=== PATIENT | male | born 1970 | race Caucasian/White ===

== ENCOUNTER 2020-11-11 12:06 | Inpatient (IN) | payer OTHER, SELFPAY ==
[~2020-11-11] VITALS: Ht 190.5 cm; Wt 85.7 kg
[2020-11-11 12:10] VITALS: BP 110/65
--- NOTE | 2020-11-11 12:25 | NUR ---
Patient wheelchair assisted to ER bed 3.
--- NOTE | 2020-11-11 12:30 | NUR ---
50 Y/O MALE BIB SELF C/O SOB XYESTERDAY. PT TESTED POSITIVE FOR COVID 11/02. PT ALSO C/O FATIGUE AND CORTES 12/13. PT IS NOT VACCINATED. CRACKLES AUSCULATED BILATERAL BASES. SPO2 91% ON RA. PT IN GOWN, ON PYROTECHNIST. PT A/O X4 AND LABORED RESPIRATIONS. DR DELEON MADE AWARE OR STATUS. PMH:GAL NKDA
--- NOTE | 2020-11-11 12:36 | NUR ---
DR DELEON AT BEDSIDE EVALUATING PT
--- NOTE | 2020-11-11 13:35 | NUR ---
PT VERY WARM TO TOUCH, ORAL TEMP 102.[address] DELEON MADE AWARE
[2020-11-11] MEDS ORDERED: ACETAMINOPHEN 325 MG TAB PO ONE (13:45)
[2020-11-11 14:32] LABS: BASOPHILS % (AUTO) 0.1 % (0.0-2.0); HEMATOCRIT 37.3 % (36-52); HEMOGLOBIN 12.7 g/dL (12.0-18.0); LYMPHOCYTES # (AUTO) 0.9 K/uL (2.0-11.5); LYMPHOCYTES % (AUTO) 12.5 % (20.5-51.1); MEAN CORPUSCULAR HEMOGLOBIN 32 pg (27-31); MEAN CORPUSCULAR HGB CONC 34 g/dL (33-37); MEAN CORPUSCULAR VOLUME 92.3 fL (80-94); MONOCYTES # (AUTO) 0.7 K/uL (0.8-1.0); MONOCYTES % (AUTO) 8.8 % (1.7-9.3); NEUTROPHILS # (AUTO) 5.9 K/uL (1.8-7.7); NEUTROPHILS % (AUTO) 78.6 % (42.2-75.2); PLATELET COUNT (AUTO) 218 K/uL (140-450); RED BLOOD CELL COUNT(AUTO) 4.04 MIL/uL (4.20-6.10); RED CELL DISTRIBUTION WIDTH 12.4 % (11.6-13.7); WHITE BLOOD COUNT (AUTO) 7.5 K/uL (4.8-10.8)
[2020-11-11 14:39] LABS: APPEARANCE,URINE CLEAR (CLEAR); BILIRUBIN,URINE NEGATIVE (NEGATIVE); BLOOD, URINE NEGATIVE (NEGATIVE); COLOR,URINE YELLOW (YELLOW); LEUKOCYTE ESTERASE ,URINE NEGATIVE (NEGATIVE); NITRITE, URINE NEGATIVE (NEGATIVE); PH,URINE 7.5 (5.0-9.0); UGLUCOSE NEGATIVE (NEGATIVE)
[2020-11-11 14:51] LABS: ALBUMIN 3.3 g/dL (3.4-5.0); ANION GAP 9.5 (8-16); CARBON DIOXIDE 30.4 mmol/L (21-32); CREATININE 1.1 mg/dL (0.6-1.3); POTASSIUM 3.9 mmol/L (3.5-5.1)
[2020-11-11 14:54] LABS: FIBRINOGEN > 500 mg/dL (200-400); PROTHROMBIN TIME 9.8 secs (10.8-13.4)
[2020-11-11 15:01] LABS: D-DIMER 2840 ng/ml (0-400)
[2020-11-11 15:02] LABS: C-REACTIVE PROTEIN QUANT 6.5 mg/dL (0.0-0.9); LACTATE DEHYDROGENASE 278 U/L (85-227)
--- NOTE | 2020-11-11 15:30 | NUR ---
RECHECKED ORAL TEMP, 99.1 AT THIS TIME. PT RESTING IN BED. PT ON 3L O2, ON BELLY DUMP DRIVER. VSS. WILL CONTINUE TO MONITOR
[2020-11-11] MEDS ORDERED: MAGNESIUM OXIDE 400 MG TAB PO PRN (15:55)
[2020-11-11] MEDS ORDERED: POTASSIUM CHLORIDE 10 MEQ TABER PO PRN (15:55)
[2020-11-11] MEDS ORDERED: ONDANSETRON 4 MG/2 ML VIAL IVP PRN (15:55)
[2020-11-11] MEDS ORDERED: MAG SULF 2000 MG/WATER PREMIX 50 ML IV PRN (15:55)
[2020-11-11] MEDS ORDERED: ACETAMINOPHEN 325 MG TAB PO PRN (15:55)
[2020-11-11] MEDS ORDERED: KCL 20 MEQ/WATER INJ PREMIX 200 ML IV PRN (15:55)
[2020-11-11] MEDS ORDERED: remdesivir COMMUNICATION ORDER 1 EA MISC MC PRN (16:05)
[2020-11-11 16:28] LABS: ALBUMIN 3.3 g/dL (3.4-5.0); BILIRUBIN,DIRECT 0.2 mg/dL (0.0-0.3)
--- NOTE | 2020-11-11 17:46 | NUR ---
PT RESTING IN BED. PT ON 3L 02, NO RESPIRATORY DISTRESS AT THIS TIME. PT ON CONTROL CLERK AUDITING. URINAL AT BEDSIDE
[2020-11-11] MEDS ORDERED: REMDESIVIR. 200 MG in NACL 0.9% 100 ML IV ONE (18:05)
[2020-11-11] MEDS ORDERED: remdesivir CLINICAL MONITORING 1 EA MISC MC PRN (18:05)
[2020-11-11] MEDS ORDERED: cefTRIAXone 1,000 MG VIAL ONE (18:30)
--- NOTE | 2020-11-11 19:30 | NUR ---
REPORT GIVEN TO ADRIANO CHAWLA, TRANSFER OF CARE AT THIS TIME.
[2020-11-11] MEDS ORDERED: AZITHROMYCIN 500 MG INJ VIAL IV ONE (19:43)
[2020-11-11] MEDS: AZITHROMYCIN 500 MG in DEXTROSE 5% 250 ML IV SCH (20:01)
--- NOTE | 2020-11-11 20:11 | NUR ---
CALLED TO BEDSIDE DUE TO PT DESATURATING. PT ON 5L NC. SWITCHED DEVICE TO HIGH FLOW NASAL CANNULA 6L. SPO2 92%. RN NOTIFIED. WILL CONTINUE TO MONITOR PT.
--- NOTE | 2020-11-11 20:30 | NUR ---
Patient will be admitted to care of [facility]. Admited to telemetry. Will go to [id number]. Belongings list completed. Report to swapna woodard.
--- NOTE | 2020-11-11 20:51 | NUR ---
ADMISSION NOTE FOR A 50 YEAR OLD MALE PATIENT OF DOCTOR DEJESUS WITH COVID HYPOXIA INTO THE 80'S ON ROOM AIR. HISTORY INCLUDES OBESITY AND HYPERTENSION. PATIENT RESIDES AT HOME WITH FAMILY WHERE HE PLANS TO DISCHARGE TO WHEN STABLE. FIORDALIZA CABAN RN Addendum: 11/11/20 at 2101 by Agency CAMMY CHAWLA HYPERLIPIDMIA HISTORY NOT HYPERTENSION Addendum: 11/11/20 at 210 by Agency CAMMY CHAWLA HYPERLIPIDEMIA Addendum: 11/12/20 at 0724 by Agency 09 RN RN HYPERLIPIDEMIA, NOT OBESITY
[2020-11-11 21:18] VITALS: BP 138/77
[2020-11-11 22:20] VITALS: BP 108/63
[2020-11-12] VITALS (7 sets, daily range): BP systolic 111–129; BP diastolic 66–84
[2020-11-12 07:21] LABS: BASOPHILS % (AUTO) 0.1 % (0.0-2.0); EOSINOPHILS % (AUTO) 0.1 % (0.0-4.0); HEMATOCRIT 36.4 % (36-52); HEMOGLOBIN 12.5 g/dL (12.0-18.0); LYMPHOCYTES # (AUTO) 1.1 K/uL (2.0-11.5); LYMPHOCYTES % (AUTO) 13.9 % (20.5-51.1); MEAN CORPUSCULAR HEMOGLOBIN 31 pg (27-31); MEAN CORPUSCULAR HGB CONC 34 g/dL (33-37); MEAN CORPUSCULAR VOLUME 91.5 fL (80-94); MONOCYTES # (AUTO) 0.7 K/uL (0.8-1.0); MONOCYTES % (AUTO) 8.4 % (1.7-9.3); NEUTROPHILS # (AUTO) 6.3 K/uL (1.8-7.7); NEUTROPHILS % (AUTO) 77.5 % (42.2-75.2); PLATELET COUNT (AUTO) 233 K/uL (140-450); RED BLOOD CELL COUNT(AUTO) 3.98 MIL/uL (4.20-6.10); RED CELL DISTRIBUTION WIDTH 12.1 % (11.6-13.7); WHITE BLOOD COUNT (AUTO) 8.1 K/uL (4.8-10.8)
--- NOTE | 2020-11-12 07:25 | NUR ---
recieved report from occupational therapy specialist nurse, pt laying in bed, no sign of distress noted, no complainds, pt on nasal canula 2l sat 96%, pt has iv in his l AC 20G , pt on registered nurse cardiac showing sinus rhythm. pt is COVID positive. all safety measures on place, calls light within reach.
--- NOTE | 2020-11-12 07:34 | NUR ---
HANDOFF WITH CAMMY KAHN. FIODRALIZA CABAN RN
[2020-11-12 07:47] LABS: CARBON DIOXIDE 31.3 mmol/L (21-32); CREATININE 0.9 mg/dL (0.6-1.3); POTASSIUM 4.3 mmol/L (3.5-5.1)
[2020-11-12 08:03] LABS: PROTHROMBIN TIME 10.2 secs (10.8-13.4)
[2020-11-12 08:13] LABS: CHOL/HDL RATIO 4.7 (1-4.5); MAGNESIUM 2.1 mg/dL (1.8-2.4)
[2020-11-12 08:16] LABS: BILIRUBIN,DIRECT 0.3 mg/dL (0.0-0.3)
--- NOTE | 2020-11-12 09:15 | NUR ---
PT SITTING ON BED, EATING BREAKFAST, NO SIGN OF DISTRESS NOTED, PT COMPLAIN ABOUT FEELING TIRED BECAUSE HE DID NOT RECEIVE FOOD YESTERDAY. MORNING MEDICATINS GOT ADMINISTRATED, TOLERATED WELL. ALL SAFETY MEASURE ON PLACE, CALLS LIGHT WITHIN REACH
--- NOTE | 2020-11-12 09:19 | NUR ---
PATIENT HAS BEEN SCREENED AND CATEGORIZED MODERATE NUTRITION RISK. PATIENT WILL BE SEEN WITHIN 3-5 DAYS OF ADMISSION. 11/14/20 11/16/[address]
[2020-11-12] MEDS: DEXAMETHASONE 4 MG/ML VIAL IVP SCH (09:20)
[2020-11-12] MEDS: DOCUSATE SODIUM 100 MG GELCAP PO SCH (09:20)
--- NOTE | 2020-11-12 11:10 | NUR ---
PT SITTING ON BED, COMPLAINS ABOUT COUGH AND DIFFICULTY BREATHING, SAT %96 BLOOD PRESSURE 112/72 HEART RATE 73, PT IN NASAL CANULA 2L.
--- NOTE | 2020-11-12 13:25 | NUR ---
PT LAYING ON BED NO COMPLAINS AT THIS TIME, NO SIGN OF DISTRESS NOTED, SAFETY MEASURES ON PLACE, CALLS LIGHT WITHIN REACH.
--- NOTE | 2020-11-12 15:30 | NUR ---
PT LAYING ON BED NO COMPLAINS AT THIS TIME, NO SIGN OF DISTRESS NOTED, PT GOT ASSISTED TO USE THE RESTROOM. SAFETY MEASURES ON PLACE, CALLS LIGHT WITHIN REACH.
--- NOTE | 2020-11-12 17:35 | NUR ---
PT LAYING ON BED COMPLAINS THAT FEELING TIRED, PT GOT EDUCATED ABOUT DIAGNOSIS, AND MANAGING SYMPTOMS, NO SIGN OF DISTRESS NOTED, SAFETY MEASURES ON PLACE, CALLS LIGHT WITHIN REACH.
[2020-11-12] MEDS: AZITHROMYCIN 500 MG in DEXTROSE 5% 250 ML IV SCH (18:00)
[2020-11-12] MEDS: REMDESIVIR. 100 MG in NACL 0.9% 100 ML IV SCH (19:00)
--- NOTE | 2020-11-12 19:05 | NUR ---
REPORT GIVEN TO CONCRETE MIXER LOADER TRUCK MOUNTED NURSE.
[2020-11-13] VITALS: BP 117/77
[2020-11-13 04:00] VITALS: BP 124/82
--- NOTE | 2020-11-13 07:15 | NUR ---
RECEIVED CHANGE OF SHIFT REPORT FROM NIGHT NURSE AT BEDSIDE FOR CONTINUITY OF CARE. DISCUSSED AND WILL CONTINUE POC. PT CONDITION IS STABLE. PT IS AWAKE, AA&OX4. PT IS ON 5L NC WITH NORMAL, UNLABORED BREATHING. PT USES URINAL TO VOID. PT HAS PREVIOUS FRACTURE IN L-LOWER LEG WITH CRUTCHES AT BEDSIDE. SKIN IS WARM, DRY, AND INTACT. PT HAS PATENT L-FOREARM 18G. WILL CONTINUE TO MONITOR.
--- NOTE | 2020-11-13 07:17 | NUR ---
HANDOFF WITH CAMMY LUQUE. FIORDALIZA CABAN RN
[2020-11-13 07:46] LABS: EOSINOPHILS % (AUTO) 0.4 % (0.0-4.0); HEMOGLOBIN 12.5 g/dL (12.0-18.0); LYMPHOCYTES # (AUTO) 1.2 K/uL (2.0-11.5); LYMPHOCYTES % (AUTO) 13.2 % (20.5-51.1); MEAN CORPUSCULAR HEMOGLOBIN 31 pg (27-31); MEAN CORPUSCULAR HGB CONC 34 g/dL (33-37); MEAN CORPUSCULAR VOLUME 92.4 fL (80-94); MONOCYTES # (AUTO) 0.9 K/uL (0.8-1.0); MONOCYTES % (AUTO) 10.1 % (1.7-9.3); NEUTROPHILS % (AUTO) 76.3 % (42.2-75.2); PLATELET COUNT (AUTO) 298 K/uL (140-450); RED CELL DISTRIBUTION WIDTH 12.2 % (11.6-13.7); WHITE BLOOD COUNT (AUTO) 9.2 K/uL (4.8-10.8)
[2020-11-13 07:54] LABS: ALBUMIN 3.1 g/dL (3.4-5.0); BILIRUBIN,DIRECT 0.2 mg/dL (0.0-0.3); TOTAL BILIRUBIN 1.1 mg/dL (0.0-1.0)
[2020-11-13 08:00] VITALS: BP 115/72
[2020-11-13 08:02] LABS: ANION GAP 10.6 (8-16); CREATININE 0.9 mg/dL (0.6-1.3); MAGNESIUM 2.3 mg/dL (1.8-2.4); POTASSIUM 4.6 mmol/L (3.5-5.1); TOTAL BILIRUBIN 1.1 mg/dL (0.0-1.0)
[2020-11-13 08:45] LABS: PROTHROMBIN TIME 10.5 secs (10.8-13.4)
--- NOTE | 2020-11-13 09:20 | NUR ---
PT IS AWAKE AND WATCHING TV. PT IS AA&OX4 ON 5 L NC WITH GRUNTING AND MINOR LABORED BREATHING. PT DENIES ANY PAIN AT THIS TIME. WILL CONTINUE TO MONITOR.
[2020-11-13] MEDS: DOCUSATE SODIUM 100 MG GELCAP PO SCH (09:48)
[2020-11-13] MEDS: DEXAMETHASONE 4 MG/ML VIAL IVP SCH (09:49)
--- NOTE | 2020-11-13 11:30 | NUR ---
PT CONDITION IS STABLE. PT NEEDED ASSISTANCE USING THE BATHROOM, WINDOW SHADE ESTIMATOR AT BEDSIDE TO ASSIST. 1 BM WAS PRODUCED. PT DENIES PAIN AT THIS TIME AND BREATHING IS BETTER AFTER BM.
[2020-11-13 12:00] VITALS: BP 119/72
--- NOTE | 2020-11-13 13:30 | NUR ---
PT CONDITION IS STABLE AA&OX4. NC AT 5 L BREATHING IN UNLABORED WITH SLIGHT SOB. WILL CONTINUE TO MONITOR.
--- NOTE | 2020-11-13 14:51 | NUR ---
DC PLANNING: ORDERS RECEIVED TO EVALUATE FOR HOME O2, TC TO RT THIS MORNING ASKING FOR O2 SAT ON RA, CALLED AGAIN DOCUMENTATION IS NOT THERE YET. SPOKE WITH RODO, STATES SHE WILL EVALUATE PATIENT. ALEXEI WILL FOLLOW FOR NEEDS. Addendum: 11/16/20 at 1243 by Donna Hinojosa CM DC PLANNING: ALEXEI SPOKE WITH THE PATIENT AT BEDSIDE. HE LIVES IN A TWO STORY HOME WITH HIS AND 2 CHILDREN. HE IS CURRENTLY NOT WORKING BECAUSE OF A FRACTURED LEFT LEG. EXPLAINED THAT HOME O2 IS BEING ARRANGED AND CONFIRMED THE ADDRESS AND CONTACT PHONE NUMBER FOR HIS [facility] PER THE FACESHEET. ORDER AND INFORMATION FAXED TO [facility]. ALEXEI ALSO SPOKE WITH THE PATIENTS [facility]EL AND ENDORSED THAT [facility] WILL CALL TO SCHEDULE DELIVERY OF O2 EQUIPMENT AND THAT SHE MIGHT NEED TO BRING THE PORTABLE O2 TO THE HOSPITAL WHEN HE DC'S. [facility] WILL TRANSPORT HIM HOME WHEN HE'S DC'D, STATES SHE IS VACCINATED AND THAT SHE HAS ALREADY HAD COVID. ALEXEI WILL FOLLOW FOR NEEDS.
--- NOTE | 2020-11-13 15:30 | NUR ---
PT AWAKE AND WATCHING TV. PT DENIES PAIN OR DISCOMFORT AT THIS TIME. WILL CONTINUE TO MONITOR.
[2020-11-13 16:00] VITALS: BP 118/69
--- NOTE | 2020-11-13 17:25 | NUR ---
PT CALL LIGHT ANSWERED. NEEDED WATER. GOT WATER AND DENIED PAIN OR DISCOMFORT. NO CHANGE IN BREATHING. WILL CONTINUE TO MONITOR.
[2020-11-13] MEDS: AZITHROMYCIN 500 MG in DEXTROSE 5% 250 ML IV SCH (18:00)
[2020-11-13] MEDS: REMDESIVIR. 100 MG in NACL 0.9% 100 ML IV SCH (18:05)
--- NOTE | 2020-11-13 18:05 | NUR ---
UNABLE TO ADMINISTER SCHEDULED REMDESIVIR IV ABX. IV PUMP STOPPED WORKING FOR 1700 ABX DELAYING SCHEDULED IV ABX. WILL NOTIFY NIGHT NURSE.
--- NOTE | 2020-11-13 19:25 | NUR ---
GAVE CHANGE OF SHIFT REPORT TO NIGHT NURSE FOR CONTINUITY OF CARE. POC DISCUSSED. PT CONDITION IS STABLE. Addendum: 11/13/20 at 210 by Whitney Chacon RN RN NOTIFIED NIGHT NURSE BEHIND SCHEDULE ON IV ABX.
[2020-11-14 01:02] VITALS: BP 115/71
[2020-11-14] MEDS: HYDROcodone/APAP 5/325 MG 1 TAB TAB PO PRN ×3 (03:25→21:46)
[2020-11-14 04:31] VITALS: BP 122/76
--- NOTE | 2020-11-14 04:53 | NUR ---
THE PATEINT IS ALERT AND ORIENTED , VITALS ARE STABLE, HAD PAIN 7 ON SCALE 0-10 , NORCO WAS ADMINISTERED
--- NOTE | 2020-11-14 07:21 | NUR ---
RECEIVED REPORT FROM MAINTENANCE ENGINEER OIL FIELD NURSE FOR CONTINUITY OF CARE, POC DISCUSSED. PT IS ASLEEP IN BED WITH CHEST RISING AND FALLING EVEN AND UNLABORED, ON 5L NC. PT IS SR ON TELE MONITOR SHOWING 90 HR. PT HAS A LEFT FA 18G SALINE LOCK. PT IS FALLING COVID PRECAUTIONS. ALL SAFETY MEASURES IN PLACE, CALL LIGHT WITHIN REACH. WILL CONTINUE TO MONITOR.
[2020-11-14 07:31] LABS: BASOPHILS % (AUTO) 0.2 % (0.0-2.0); EOSINOPHILS % (AUTO) 0.4 % (0.0-4.0); HEMATOCRIT 33.8 % (36-52); HEMOGLOBIN 11.7 g/dL (12.0-18.0); LYMPHOCYTES # (AUTO) 1.1 K/uL (2.0-11.5); LYMPHOCYTES % (AUTO) 9.1 % (20.5-51.1); MEAN CORPUSCULAR HEMOGLOBIN 31 pg (27-31); MEAN CORPUSCULAR HGB CONC 35 g/dL (33-37); MEAN CORPUSCULAR VOLUME 90.6 fL (80-94); MONOCYTES % (AUTO) 8.3 % (1.7-9.3); NEUTROPHILS # (AUTO) 9.7 K/uL (1.8-7.7); PLATELET COUNT (AUTO) 328 K/uL (140-450); RED BLOOD CELL COUNT(AUTO) 3.73 MIL/uL (4.20-6.10); RED CELL DISTRIBUTION WIDTH 12.2 % (11.6-13.7); WHITE BLOOD COUNT (AUTO) 11.8 K/uL (4.8-10.8)
[2020-11-14 07:50] LABS: ALBUMIN 2.8 g/dL (3.4-5.0); BILIRUBIN,DIRECT 0.3 mg/dL (0.0-0.3)
[2020-11-14 08:00] VITALS: BP 113/80
[2020-11-14 08:23] LABS: PROTHROMBIN TIME 10.3 secs (10.8-13.4)
[2020-11-14 08:41] LABS: ALBUMIN 2.8 g/dL (3.4-5.0); CARBON DIOXIDE 29.4 mmol/L (21-32); CREATININE 0.8 mg/dL (0.6-1.3); MAGNESIUM 2.1 mg/dL (1.8-2.4); POTASSIUM 4.4 mmol/L (3.5-5.1)
[2020-11-14] MEDS: DOCUSATE SODIUM 100 MG GELCAP PO SCH (09:24)
[2020-11-14] MEDS: DEXAMETHASONE 4 MG/ML VIAL IVP SCH (09:24)
--- NOTE | 2020-11-14 09:28 | NUR ---
RENU MEDICATION ADMINISTERED PER MD ORDER, PT TOLERATED ADMINISTRATION. PT EDUCATION PROVIDED AND PT TOLERATED. PT IV IS PATENT AND INTACT. INTERMITTENT COUGH NOTED, NO PRODUCTION. PT ATE 75% BREAKFAST, URINAL EMPTIED FROM 320ML IMANI COLOR URINE. PT REPORTS ALL OTHER NEEDS ARE MET AT THIS TIME. ALL SAFETY MEASURES IN PLACE, CALL LIGHT WITHIN REACH. EDUCATED SKI LIFT OPERATOR LIGHT AND PT VERBALIZED UNDERSTANDING. ALL SAFETY MEASURES IN PLACE, CALL LIGHT WITHIN REACH. WILL CONTINUE TO MONITOR.
[2020-11-14] MEDS: REMDESIVIR. 100 MG in NACL 0.9% 100 ML IV SCH (10:55)
--- NOTE | 2020-11-14 10:57 | NUR ---
MEDICATED PER MD ORDER FOR PAIN, RENU MEDICATION ADMINISTERED PER MD ORDER. PT EDUCATION PROVIDED. PT VERBALIZED UNDERSTANDING ALL SAFETY MEASURES IN PLACE, CALL LIGHT WITHIN REACH. WILL CONTINUE TO MONITOR.
--- NOTE | 2020-11-14 11:57 | NUR ---
PT REPORTS TOLERABLE CHEST PAIN. ALL SAFETY MEASURES IN PLACE, CALL LIGHT WITHIN REACH. WILL CONTINUE TO MONITOR.
[2020-11-14 12:00] VITALS: BP 106/67
--- NOTE | 2020-11-14 13:51 | NUR ---
PT BEDSIDE TABLE CLEANED FOR PT, 200 IMANI URINE IN URINAL. PT REPORTS ALL NEEDS MET AT THIS TIME. CALL LIGHT WITHIN REACH. WILL CONTINUE TO MONITOR.
--- NOTE | 2020-11-14 14:58 | NUR ---
ROUNDED ON PT, PT IS RESTING IN BED WITH NO S/S OF ACUTE DISTRESS. CHEST RISING AND FALLING EVEN AND UNLABORED. PT IS ON 5L NC. ALL SAFETY MEASURES IN PLACE, CALL LIGHT WITHIN REACH. WILL CONTINUE TO MONITOR.
[2020-11-14 16:00] VITALS: BP 110/72
--- NOTE | 2020-11-14 16:50 | NUR ---
RENU MEDICATION ADMINISTERED PER MD ORDER, PT TOLERATED ADMINISTRATION. ALL SAFETY MEASURES IN PLACE, CALL LIGHT WITHIN REACH. WILL CONTINUE TO MONITOR.
--- NOTE | 2020-11-14 18:21 | NUR ---
RENU MEDICATION ADMINISTERED PER MD ORDER. PT REPORTS ALL NEEDS MET AT THIS TIME. ALL SAFETY MEASURES IN PLACE. CALL LIGHT WITHIN REACH. WILL CONTINUE TO MONITOR.
[2020-11-14] MEDS: AZITHROMYCIN 500 MG in DEXTROSE 5% 250 ML IV SCH (18:37)
--- NOTE | 2020-11-14 19:00 | NUR ---
PT IS STABLE. PT ENDORSED TO DEAL ARCHITECT NURSE FOR CONTINUITY OF CARE. POC DISCUSSED.
--- NOTE | 2020-11-14 19:47 | NUR ---
RECEIVED PATIENT FROM AM NURSE FOR CONTINUITY OF CARE. PATIENT IS A/A/O X4. ON TELE MONITOR. RESPIRATORY EVEN AND UNLABORED, ON 5L NC, O2 SAT 92%, PATIENT DENIES ANY SOB OR TROUBLE BREATHING. DRY COUGH NOTED INTERMITTENT. SKIN WARM, DRY, NON DIAPHORETIC. IV ON LEFT FA 18G, INTACT AND PATENT, TKO. ORTHO BOOT NOTED ON LLE. PATIENT DENIES ANY PAIN, WEAKNESS, NUMBNESS OR TINGLING SENSATION. CRUTCHES NOTED AT BEDSIDE. PATIENT ABLE TO MAKE NEEDS KNOW. PLAN OF CARE DISCUSSED. PATIENT VERBALIZED UNDERSTANDING. CALL LIGHT WITHIN REACH. PRECAUTION IN PLACE. WILL CONTINUE TO MONITOR.
[2020-11-14 20:00] VITALS: BP 100/70
--- NOTE | 2020-11-14 21:46 | NUR ---
PATIENT COMPLAINS OF PAIN ON HIS CHEST WALL 6/10 DUE TO COUGH. PATIENT ON TELE MONITOR, SR 73. PRN MEDICATION GIVEN WITH EDUCATION. PATIENT TOLERATED WELL. NO SIGN OF DISTRESS NOTED. PRECAUTION IN PLACE. CALL LIGHT WITHIN REACH. WILL CONTINUE TO MONITOR.
--- NOTE | 2020-11-14 22:46 | NUR ---
PATIENT IS SLEEPING. CHEST RISE AND FALL NOTED. NO SIGN OF DISTRESS. PRECAUTION IN PLACE. CALL LIGHT WITHIN REACH. WILL CONTINUE TO MONITOR.
[2020-11-15] VITALS: BP 101/57
--- NOTE | 2020-11-15 | NUR ---
VITAL SIGNS WITHIN NORMAL LIMIT. PATIENT IS STABLE. NO SIGN OF DISTRESS NOTED. PRECAUTION IN PLACE. CALL LIGHT WITHIN REACH. WILL CONTINUE TO MONITOR.
--- NOTE | 2020-11-15 02:00 | NUR ---
ROUND CHECK. PATIENT IS SLEEPING, CHEST RISE AND FALL NOTED, AROUSABLE TO VOICE. NO SIGN OF DISTRESS. PRECAUTION IN PLACE. CALL LIGHT WITHIN REACH. WILL CONTINUE TO MONITOR.
[2020-11-15 04:00] VITALS: BP 104/69
--- NOTE | 2020-11-15 04:00 | NUR ---
VITAL SIGN WITHIN NORMAL LIMIT. PATIENT IS RESTING IN BED, DENIES ANY SOB OR TROUBLE BREATHING. PRECAUTION IN PLACE. CALL LIGHT WITHIN REACH. WILL CONTINUE TO MONITOR.
--- NOTE | 2020-11-15 06:00 | NUR ---
PATIENT IS RESTING IN BED, NO SIGN OF DISTRESS, WARM BLANKET AND EXTRA PILLOW PROVIDED. PATIENT SATISFIED. PRECAUTION IN PLACE. CALL LIGHT WITHIN REACH. WILL CONTINUE TO MONITOR.
[2020-11-15 07:10] LABS: BASOPHILS % (AUTO) 0.1 % (0.0-2.0); EOSINOPHILS # (AUTO) 0.1 K/uL (0-0.4); HEMOGLOBIN 11.8 g/dL (12.0-18.0); LYMPHOCYTES # (AUTO) 1.1 K/uL (2.0-11.5); LYMPHOCYTES % (AUTO) 10.2 % (20.5-51.1); MEAN CORPUSCULAR HEMOGLOBIN 31 pg (27-31); MEAN CORPUSCULAR HGB CONC 34 g/dL (33-37); MEAN CORPUSCULAR VOLUME 91.5 fL (80-94); MONOCYTES % (AUTO) 8.8 % (1.7-9.3); NEUTROPHILS # (AUTO) 8.9 K/uL (1.8-7.7); NEUTROPHILS % (AUTO) 79.9 % (42.2-75.2); PLATELET COUNT (AUTO) 388 K/uL (140-450); PROTHROMBIN TIME 10.3 secs (10.8-13.4); RED BLOOD CELL COUNT(AUTO) 3.82 MIL/uL (4.20-6.10); RED CELL DISTRIBUTION WIDTH 12.2 % (11.6-13.7); WHITE BLOOD COUNT (AUTO) 11.2 K/uL (4.8-10.8)
--- NOTE | 2020-11-15 07:10 | NUR ---
ENDORSED PATIENT TO AM NURSE FOR CONTINUITY OF CARE. PATIENT IS STABLE.
[2020-11-15 07:20] LABS: ALBUMIN 2.8 g/dL (3.4-5.0); ANION GAP 10.9 (8-16); CARBON DIOXIDE 29.2 mmol/L (21-32); CREATININE 0.8 mg/dL (0.6-1.3); POTASSIUM 4.1 mmol/L (3.5-5.1); TOTAL BILIRUBIN 0.8 mg/dL (0.0-1.0)
--- NOTE | 2020-11-15 07:22 | NUR ---
RECEIVED REPORT FROM OPEN HEARTH WORKER NURSE FOR CONTINUITY OF CARE, POC DISCUSSED. PT IS ASLEEP IN BED WITH CHEST RISING AND FALLING EVEN AND UNLABORED. PT SKIN INTACT, WITH A LEFT BOOT FOR FRACTURE. PT HAS A LEFT FOREARM 18G SALINE LOCK. PT IS ON TELE MONITOR. ALL COVID MEASURES IN PLACE, ALL SAFETY MEASURES IN PLACE. CALL LIGHT WITHIN REACH. WILL CONTINUE TO MONITOR.
[2020-11-15 07:23] LABS: ALBUMIN 2.8 g/dL (3.4-5.0); BILIRUBIN,DIRECT 0.2 mg/dL (0.0-0.3); TOTAL BILIRUBIN 0.8 mg/dL (0.0-1.0)
[2020-11-15 08:00] VITALS: BP 114/70
[2020-11-15 08:00] LABS: D-DIMER > 5000 ng/ml (0-400)
[2020-11-15] MEDS: DOCUSATE SODIUM 100 MG GELCAP PO SCH (09:36)
[2020-11-15] MEDS: DEXAMETHASONE 4 MG/ML VIAL IVP SCH (09:36)
--- NOTE | 2020-11-15 09:44 | NUR ---
RENU MEDICATION ADMINISTERED PER MD ORDER, PT TOLERATED ADMINISTRATION. PT EDUCATION PROVIDED. PT URINAL EMPTIED 250 IMANI URINE. PT CHEST RISING AND FALLING EVEN AND UNLABORED ON 5L NC. ALL SAFETY MEASURES IN PLACE, CALL LIGHT WITHIN REACH. WILL CONTINUE TO MONITOR.
[2020-11-15] MEDS: REMDESIVIR. 100 MG in NACL 0.9% 100 ML IV SCH (10:42)
--- NOTE | 2020-11-15 10:51 | NUR ---
RENU MEDICATION ADMINISTERED PER MD ORDER, PT TOLERATED ADMINISTRATION. PT EDUCATION PROVIDED, PT VERBALIZED UNDERSTANDING. ALL SAFETY MEASURES IN PLACE, CALL LIGHT WITHIN REACH. WILL CONTINUE TO MONITOR.
[2020-11-15] MEDS: HYDROcodone/APAP 5/325 MG 1 TAB TAB PO PRN ×2 (11:49→22:26)
--- NOTE | 2020-11-15 11:58 | NUR ---
PRN PAIN MEDICATION ADMINISTERED PER MD ORDER, PT TOLERATED ADMINISTRATION. PT EDUCATION PROVIDED, PT VERBALIZED UNDERSTANDING. EDUCATED PT ON IMPORTANCE OF WEARING A MASK TO PREVENT COVID FROM SPREADING, PT VERBALIZED UNDERSTANDING. ALL SAFETY MEASURES IN PLACE. CALL LIGHT WITHIN REACH. WILL CONTINUE TO MONITOR.
[2020-11-15 12:00] VITALS: BP 117/76
--- NOTE | 2020-11-15 13:06 | NUR ---
PT IS EATING LUNCH IN BED WITH CHEST RISING AND FALLING EVEN AND UNLABORED. ALL SAFETY MEASURES IN PLACE. CALL LIGHT WITHIN REACH. WILL CONTINUE TO MONITOR.
--- NOTE | 2020-11-15 15:05 | NUR ---
PT IS STABLE, RESTING IN BED WITH NO ACUTE S/S. PROVIDED PT WITH HIS PHONE PER REQUEST. PT VERBALIZED ALL OTHER NEEDS MET AT THIS TIME. ALL SAFETY MEASURES IN PLACE. CALL LIGHT WITHIN REACH. WILL CONTINUE TO MONITOR.
--- NOTE | 2020-11-15 16:24 | NUR ---
PT IS RESTING IN BED WITH NO ACUTE S/S. ALL SAFETY MEASURES IN PLACE, CALL LIGHT WITHIN REACH. WILL CONTINUE TO MONITOR.
--- NOTE | 2020-11-15 17:05 | NUR ---
NURSE REPORT REPORT OBTAINED FROM OTHER DAY SHIFT NURSE AND THIS NURSE ASSUME CARE OF PATIENT UNTIL END OF SHIFT.
--- NOTE | 2020-11-15 17:05 | NUR ---
PT BEEN ENDORSED TO [facility] FOR CONTINUITY OF CARE, POC DISCUSSED. PT STABLE.
[2020-11-15] MEDS: AZITHROMYCIN 500 MG in DEXTROSE 5% 250 ML IV SCH (17:52)
--- NOTE | 2020-11-15 19:45 | NUR ---
NURSE REPORT REPORT GIVEN TO NIGHT NURSE HOWARD TO ASSUME CARE OF PATIENT. GIVEN SBAR AND ALL QUESTIONS ANSWERED.
[2020-11-15 20:00] VITALS: BP 120/81
--- NOTE | 2020-11-15 23:15 | NUR ---
the patient vitals are stable , he is on nc with unlabored respiration. he has pain 6 on scale 0-10 and [place] was administered comfort and safety measures were provided
[2020-11-16 00:56] VITALS: BP 114/78
[2020-11-16 06:06] VITALS: BP 125/85
--- NOTE | 2020-11-16 07:25 | NUR ---
RECEIVED REPORT FROM ANIMATION CAMERA OPERATOR RN FOR CONTINUITY OF CARE. PATIENT IS RESTING IN BED. NO S/S OF DISTRESS. RESPIRATIONS ARE EVEN AND UNLABORED. ALL SAFETY PRECAUTIONS IN PLACE.
[2020-11-16 07:42] LABS: PROTHROMBIN TIME 10.6 secs (10.8-13.4)
[2020-11-16 07:47] LABS: EOSINOPHILS # (AUTO) 0.1 K/uL (0-0.4); EOSINOPHILS % (AUTO) 1.2 % (0.0-4.0); HEMATOCRIT 35.1 % (36-52); HEMOGLOBIN 11.9 g/dL (12.0-18.0); LYMPHOCYTES # (AUTO) 1.4 K/uL (2.0-11.5); LYMPHOCYTES % (AUTO) 11.7 % (20.5-51.1); MEAN CORPUSCULAR HEMOGLOBIN 31 pg (27-31); MEAN CORPUSCULAR HGB CONC 34 g/dL (33-37); MEAN CORPUSCULAR VOLUME 91.7 fL (80-94); MONOCYTES # (AUTO) 1.1 K/uL (0.8-1.0); MONOCYTES % (AUTO) 9.8 % (1.7-9.3); NEUTROPHILS # (AUTO) 8.9 K/uL (1.8-7.7); NEUTROPHILS % (AUTO) 77.3 % (42.2-75.2); PLATELET COUNT (AUTO) 347 K/uL (140-450); RED BLOOD CELL COUNT(AUTO) 3.83 MIL/uL (4.20-6.10); RED CELL DISTRIBUTION WIDTH 12.2 % (11.6-13.7); WHITE BLOOD COUNT (AUTO) 11.5 K/uL (4.8-10.8)
[2020-11-16 08:05] LABS: D-DIMER > 5000 ng/ml (0-400)
[2020-11-16] MEDS: DOCUSATE SODIUM 100 MG GELCAP PO SCH (08:53)
[2020-11-16] MEDS: DEXAMETHASONE 4 MG/ML VIAL IVP SCH (08:53)
--- NOTE | 2020-11-16 08:55 | NUR ---
ADMINISTERED SCHEDULED MEDICATIONS. PATIENT VERBALIZED UNDERSTANDING. ALL SAFETY PRECAUTIONS IN PLACE. WILL CONTINUE TO MONITOR.
[2020-11-16 11:04] LABS: ALBUMIN 2.8 g/dL (3.4-5.0); TOTAL BILIRUBIN 0.7 mg/dL (0.0-1.0)
[2020-11-16 11:19] LABS: BILIRUBIN,DIRECT 0.2 mg/dL (0.0-0.3)
[2020-11-16 11:25] LABS: ALBUMIN 2.8 g/dL (3.4-5.0); ANION GAP 10.7 (8-16); CARBON DIOXIDE 29.3 mmol/L (21-32); CREATININE 0.8 mg/dL (0.6-1.3); MAGNESIUM 2.2 mg/dL (1.8-2.4); TOTAL BILIRUBIN 0.7 mg/dL (0.0-1.0)
--- NOTE | 2020-11-16 11:45 | NUR ---
PATIENT RESTING IN BED. NO S/S OF DISTRESS. ALL SAFETY PRECAUTIONS IN PLACE. ALSO SPOKE WITH PATIENT'S OVER THE PHONE TO UPDATE HER ON POC.
[2020-11-16 12:00] VITALS: BP 107/61
[2020-11-16] MEDS: REMDESIVIR. 100 MG in NACL 0.9% 100 ML IV SCH (14:14)
--- NOTE | 2020-11-16 14:15 | NUR ---
CHECKED ON PATIENT. PATIENT IS AWAKE AND IN BED. HE DOES NOT COMPLAIN OF ANY PAIN. IV SITE IS CLEAN, DRY, INTACT. NO S/S OF DISTRESS. ALL SAFETY PRECAUTIONS IN PLACE.
[2020-11-16 16:00] VITALS: BP 97/60
--- NOTE | 2020-11-16 16:58 | NUR ---
RECEIVED HOME O2 SUPPORT FROM [facility]. DOCTOR IS AWARE.
--- NOTE | 2020-11-16 17:38 | NUR ---
11/16/2020 RD INITIAL ASSESSMENT COMPLETED PLEASE REFER TO NUTRITION ASSESSMENT UNDER CARE ACTIVITY FOR ESTIMATED NUTRITIONAL NEEDS. CONTINUE CURRENT DIET TOLERATED RD TO FOLLOW-UP IN 3-5 DAYS PATIENT IS MODERATE RISK. DIANA YOUSSEF RD
--- NOTE | 2020-11-16 19:34 | NUR ---
ENDORSED PATIENT TO PAINT BOOTH OPERATOR RN FOR CONTINUITY OF CARE. PATIENT IS STABLE.
--- NOTE | 2020-11-16 19:35 | NUR ---
RECEIVED ENDORSEMENT FROM AM NURSE. PATIENT IS IN BED RESTING, AAOX4 WITH O2 VIA NC AT 5 LPM. NO SOB NOTED. SKIN WARM AND DRY TO TOUCH. ALL SAFETY PRECAUTIONS ARE IN PLACE. NO COMPLAINTS OF PAIN. CALL LIGHT WITHIN REACH. WILL CONTINUE TO MONITOR.
[2020-11-16 20:00] VITALS: BP 99/64
--- NOTE | 2020-11-16 21:30 | NUR ---
PATIENT COMPLAINED OF THROAT DRYNESS, ENCOURAGED TO DRINK WATER, WATER SERVED.
--- NOTE | 2020-11-16 22:15 | NUR ---
PATIENT IS AWAKE, NO S/S OF RESPIRATORY DISTRESS. CALL LIGHT WITHIN REACH. NEEDS ATTENDED TO. AFEBRILE.
[2020-11-17] VITALS: BP 96/60
[2020-11-17 04:00] VITALS: BP 103/57
--- NOTE | 2020-11-17 04:30 | NUR ---
PATIENT COMPLAINED IF INABILITY TO SLEEP AT 0430. EXPLAINED TO PT THAT IT'S TOO LATE TO GIVE SLEEPING PILL AT THIS TIME. PT WANTS TO TALK TO AUTO BODY CUSTOMIZER. AUTO BODY CUSTOMIZER MADE AWARE.
--- NOTE | 2020-11-17 07:25 | NUR ---
ENDORSED TO AM NURSE FOR CONTINUITY OF CARE. PT IS STABLE.
--- NOTE | 2020-11-17 07:27 | NUR ---
RECEIVED REPORT FROM NAIL SPECIALIST RN FOR CONTINUITY OF CARE. PATIENT IS RESTING IN BED. NO S/S OF DISTRESS. ALL SAFETY PRECAUTIONS IN PLACE.
[2020-11-17 08:00] VITALS: BP 107/72
--- NOTE | 2020-11-17 08:19 | NUR ---
PT ON 2 L NC. SPO2 94%. NO SOB OR DISTRESS NOTED. PT VERBALIZED HE FEELS GOOD. WILL CONTINUE TO MONITOR PATIENT.
[2020-11-17] MEDS: DOCUSATE SODIUM 100 MG GELCAP PO SCH (09:11)
[2020-11-17] MEDS: DEXAMETHASONE 4 MG/ML VIAL IVP SCH (09:12)
--- NOTE | 2020-11-17 09:15 | NUR ---
ADMINISTERED SCHEDULED MEDICATIONS. PATIENT VERBALIZED UNDERSTANDING. NO COMPLAINTS OF PAIN OR S/S OF DISTRESS. ALL SAFETY PRECAUTIONS IN PLACE.
[2020-11-17 12:00] VITALS: BP_SYST 107; BP_SYST 108; BP_DIAS 68; BP_DIAS 72
--- NOTE | 2020-11-17 12:00 | NUR ---
PATIENT RESTING IN BED. NO S/S OF DISTRESS. ALL SAFETY PRECAUTIONS IN PLACE.
[2020-11-17] MEDS ORDERED: APIX5TAB PO (13:56)
[2020-11-17] MEDS ORDERED: DEC4 PO (13:56)
--- NOTE | 2020-11-17 14:30 | NUR ---
DISCUSSED POC WITH PATIENT AGAIN. PATIENT VERBALIZED UNDERSTANDING. NO S/S OF DISTRESS. WILL CONTINUE TO MONITOR.
--- NOTE | 2020-11-17 15:30 | NUR ---
SPOKE WITH PATIENT'S OVER THE PHONE TO DISCUSS DISCHARGE. VERBALIZED UNDERSTANDING.
[2020-11-17 16:00] VITALS: BP 115/68
[2020-11-17 17:09] VITALS: BP 115/68
--- NOTE | 2020-11-17 17:30 | NUR ---
PROVIDED DISCHARGE PAPERWORK TO PATIENT. PATIENT ALSO GOING HOME WITH OXYGEN. JODIE AND Alley EXPLAINED HOW TO USE AT HOME OXYGEN. PATIENT VERBALIZED UNDERSTANDING.
--- NOTE | 2020-11-17 18:00 | NUR ---
PATIENT DISCHARGED FROM UNIT. IV REMOVED, IV CATH IS INTACT. PATIENT IS STABLE.
== END 2020-11-17 18:10 | disposition home or self-care (01) | DRG 720 ==
LOC: MED 12:06 → MTU 15:53
PROVIDERS: ADMIT Hospitalist; ATTEND Hospitalist
PROC: XW033E5 Introduction of Remdesivir Anti-infective into Peripheral Vein, Percutaneous Approach, New Technology Group 5 (ICD-10-PCS; principal; 2020-11-11)
DX: A41.9 Sepsis, unspecified organism (principal); J96.01 Acute respiratory failure with hypoxia; J12.82 Pneumonia due to coronavirus disease 2019; U07.1 COVID-19; E78.5 Hyperlipidemia, unspecified; Z87.81 Personal history of (healed) traumatic fracture
CPT/HCPCS: 36415; 36600; 71045; 80053; 80076; 81003; 82550; 82728; 82803; 83036; 83605; 83615; 83735; 83880; 84484; 85025; 85379; 85384; 85610; 85730; 86140; 87040; 87081; 87086; 87420; 87804; 93005; 96365; 96367; 99291; J0456; J0696; J1100; J7060; Q0092; U0003